=== PATIENT | female | born 1980 | race Caucasian/White ===

== ENCOUNTER 2019-03-24 09:49 | Emergency (ER) | payer SELFPAY ==
[~2019-03-24] VITALS: Ht 162.6 cm; Wt 90.0 kg
[2019-03-24] MEDS ORDERED: TETANUS, DIPHTHERIA, PERTUSSIS VAC/PF 0.5ML (>7YR OLD) IM ONE (12:15)
[2019-03-24] MEDS ORDERED: ACETAMINOPHEN 325MG TABLET PO ONE (12:15)
[2019-03-24] MEDS ORDERED: ACETAMINOPHEN 325MG TABLET ONE (12:15)
[2019-03-24 12:32] VITALS: BP 124/80
== END 2019-03-24 12:35 | disposition home or self-care (01) ==
LOC: ER 09:49
DX: S50.12XA Contusion of left forearm, initial encounter (principal); V49.88XA Car occupant (driver) (passenger) injured in other specified transport accidents, initial encounter; Y93.89 Activity, other specified; Y92.89 Other specified places as the place of occurrence of the external cause; Y99.8 Other external cause status
CPT/HCPCS: 73090; 81025; 90471; 90715; 99283; Z7610; A4565